=== PATIENT | male | born 1975 | race Caucasian/White ===

== ENCOUNTER 2017-01-27 16:00 | Emergency (ER) | payer OTHER ==
--- NOTE | 2017-01-29 10:39 | ER ---
ADMIT: 01/27/2017 RM/LOC: [facility] MR#: [id number] [place], [place] [id number] [facility]A [address] [place] [address] Emergency Room Report SEX: M AGE: 41 : 1975 DATE: 01/27/2017 TIME: 1600 hours. Please refer to my T-sheet for complete H and P. HISTORY OF PRESENT ILLNESS: Briefly, the patient is a 41-year-old, comes in with chest pain. 80 minutes ago, it started sudden kind of substernal. He felt short of breath. It was 5/10. Now, it is down to 1 or 2/10. He has a coronary history in the family, but he has never had heart disease himself. He has not taken anything for it. PHYSICAL EXAMINATION: VITAL SIGNS: Blood pressure 139/98, pulse 74, respirations 15, temperature 98.2, and saturating 100%. GENERAL: In no acute distress. HEENT: Grossly normal. LUNGS: Clear. HEART: Regular. No murmur. EMERGENCY DEPARTMENT COURSE: Chest x-ray was negative. EKG showed sinus rhythm, rate 64, no changes. CBC normal. Chemistries normal. Troponin negative. Gave him 4 aspirin and Maalox. He was stable, comfortable. He had a long discussion. I recommend we probably keep him for rule out and stress test. He would rather go home. I talked to Dr. Gongroa who is on city call. She will follow him up as an outpatient. I talked to Dr. Wes Bautista, they will do an outpatient stress test. He needs to call in the morning. I recommended aspirin. Return if he changes mind or worse. He understood this. ASSESSMENT: Chest pain, slightly atypical with known coronary disease risk in the family with no prior workup recently. PLAN: Aspirin a day. Return if he is worse. Follow up with [facility]. Call them tomorrow and [place]. Marshal Kay MD/ yann JOB #: [id number] CC: Marshal Kay MD, Attending Physician Jaylon Armando MD, Family Physician Wes Bautista MD
== END 2017-01-27 17:30 | disposition home or self-care (01) ==
LOC: ER 16:00
DX: R07.89 Other chest pain (principal); Z79.899 Other long term (current) drug therapy